=== PATIENT | male | born 1970 | race Caucasian/White ===

== ENCOUNTER 2017-07-22 12:06 | Emergency (ER) | payer SELFPAY | END 2017-07-22 15:14 | disposition home or self-care (01) | LOC: D.ER 12:06 | DX: S39.012A Strain of muscle, fascia and tendon of lower back, initial encounter (principal); X58.XXXA Exposure to other specified factors, initial encounter; Y93.89 Activity, other specified; Y92.89 Other specified places as the place of occurrence of the external cause; M54.32 Sciatica, left side ==

== ENCOUNTER 2017-07-27 08:54 | Emergency (ER) | payer SELFPAY | END 2017-07-27 10:30 | disposition home or self-care (01) | LOC: D.ER 08:54 | DX: S39.012A Strain of muscle, fascia and tendon of lower back, initial encounter (principal); X58.XXXA Exposure to other specified factors, initial encounter; Y93.89 Activity, other specified; Y92.89 Other specified places as the place of occurrence of the external cause; M62.838 Other muscle spasm ==